=== PATIENT | female | born 1990 | race Caucasian/White ===

== ENCOUNTER → 2018-09-17 | Outpatient (CLI) | payer OTHER ==
--- NOTE | 2018-09-17 17:00 | PCVCIMAG ---
APPROVED REPORT Study performed: 09/17/2018 14:57:59 EXAM: Comprehensive 2D, Doppler, and color-flow Echocardiogram Patient Location: Echo lab Room #: 3Status: routine BSA: 1.85 HR: 56 bpmBP: 126/52 mmHg Rhythm: Sinus Bradycardia Other Information Study Quality: Good Risk Factors: Cardiac Risk Factors: Hyperlipidemia Indications Murmur Palpitations 2D Dimensions IVSd: 7.63 (7-11mm)LVOT Diam: 19.90 (18-24mm) LVDd: 54.45 mm PWd: 8.39 (7-11mm)Ascending Ao: 24.29 (22-36mm) LVDs: 36.18 (25-40mm) Left Atrium: 26.42 (27-40mm) Aortic Root: 24.02 mm LV Single Plane 4CH: 57.94 % LV Single Plane 2CH: 58.05 % Biplane EF: 58.0 % Volumes Left Atrial Volume (Systole) Single Plane 4CH: 42.54 mLSingle Plane 2CH: 30.72 mL Biplane LA Volume: 45.00 mLLA ESV Index: 24.00 mL/m2 Aortic Valve AoV Peak Eric.: 1.22 m/s AO Peak Gr.: 5.91 mmHgLVOT Max P.96 mmHg LVOT Max V: 0.70 m/s CARTER Vmax: 1.79 cm2 Mitral Valve E/A Ratio: 2.6 MV Decel. Time: 201.13 ms MV E Max Eric.: 0.91 m/s MV A Eric.: 0.35 m/s MV PHT: 58.33 ms IVRT: 89.97 ms TDI E/Lateral E': 4.79E/Medial E': 7.00 Medial E' Eric.: 0.13 m/s Lateral E' Eric.: 0.19 m/s Pulmonary Valve PV Peak Eric.: 0.85 m/sPV Peak Gr.: 2.86 mmHg Pulmonary Vein P Vein S: 0.49 m/sP Vein A: 0.23 m/s P Vein D: 0.51 m/sP Vein A Dur.: 79.6 msec P Vein S/D Ratio: 0.96 Tricuspid Valve TR Peak Eric.: 1.71 m/s TR Peak Gr.: 11.74 mmHg TV Vmax: 0.62 m/sPA Pressure: 19.00 mmHg Left Ventricle The left ventricle is normal size. There is normal LV segmental wall motion. There is normal left ventricular wall thickness. Left ventricular systolic function is normal. The left ventricular ejection fraction is within the normal range. LVEF is 55-60%. The left ventricular diastolic function is normal. Right Ventricle The right ventricle is normal size. The right ventricular systolic function is normal. Atria The left atrium size is normal. The right atrium size is normal. Aortic Valve The aortic valve is normal in structure. No aortic regurgitation is present. There is no aortic valvular stenosis. Mitral Valve The mitral valve is normal in structure. There is no mitral valve regurgitation noted. No evidence of mitral valve stenosis. Tricuspid Valve The tricuspid valve is normal in structure. Trace tricuspid regurgitation with a PA pressure of 19 mmHg No pulmonary hypertension.. Pulmonic Valve The pulmonary valve is normal in structure. Trace pulmonic regurgitation. Great Vessels The aortic root is normal in size. The ascending aorta is normal in size. Aortic arch is normal in caliber. IVC is normal in size and collapses >50% with inspiration. Pericardium There is no pericardial effusion. There is no pleural effusion. <Conclusion> The left ventricle is normal size. LVEF is 55-60%. The left ventricular diastolic function is normal. The right ventricle is normal size. The left atrium size is normal. The aortic valve is normal in structure. There is no mitral valve regurgitation noted. Trace tricuspid regurgitation with a PA pressure of 19 mmHg No pulmonary hypertension.. The aortic root is normal in size. There is no pericardial effusion.
== END | disposition home or self-care (01) ==
LOC: PCVCIMAG 13:53
PROVIDERS: ATTEND Internal Medicine Cardiovascular Disease
DX: R00.2 Palpitations (principal); R01.1 Cardiac murmur, unspecified
CPT/HCPCS: 93306

== ENCOUNTER → 2018-12-02 | Outpatient (CLI) | payer OTHER ==
--- NOTE | 2018-12-04 17:20 | PCVCIMAG ---
APPROVED REPORT Patient Location: Echo lab Room #: Stress Nurse: Lindsey Frey RN Treadmill Stress Test INDICATION: Palpitations The patient exercised according to the [facility] protocol for 15:00 mins; achieving a work level of 17.50 METS. The resting heart rate of 72 bpm jama to a maximum heart rate of 184 bpm. This value represent 96% of the maximal, age-predicted heart rate. The resting blood pressure of 100/72 mmHg, jama to a maximum blood pressure of 134/60 mmHg. The exercise test was stopped due to maximal effort. Conclusion #1 no reproduction of chest pain or angina. #2 no diagnostic EKG changes consistent with ischemia and no significant ectopy. #3 excellent exercise tolerance at appropriate hemodynamic response. Impression negative treadmill stress test for ischemia or any stress induced arrhythmias no symptoms were reproduced.
== END | disposition home or self-care (01) ==
LOC: PCVCIMAG 15:13
PROVIDERS: ATTEND Internal Medicine Cardiovascular Disease
DX: R00.2 Palpitations (principal)
CPT/HCPCS: 93017